=== PATIENT | male | born 2000 | race Caucasian/White ===

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

== ENCOUNTER → 2024-11-13 | Outpatient (CLI) | payer OTHER ==
--- NOTE | 2024-11-13 13:24 | XR ---
EXAMINATION TYPE: XR lumbar spine 3V DATE OF EXAM: 11/13/2024 1:14 PM COMPARISON: 06/08/2016 CLINICAL INDICATION: Male, 24 years old with history of S39.012A muscle strain, pain, FINDINGS: There is straightening of the normal lumbar lordosis. Vertebral body heights and disc spaces are pres erved. Additional leftward truncal shift. Alignment is maintained. IMPRESSION: Straightening of the normal lumbar lordosis and leftward truncal shift may reflect muscle spasm. Othe rwise, no radiographic abnormality seen. [facility], Workstation: [facility], 11/13/2024 1:21 PM
== END | disposition home or self-care (01) ==
LOC: RADXRMAIN 12:55
PROVIDERS: ATTEND Emergency Medicine
DX: S39.012A Strain of muscle, fascia and tendon of lower back, initial encounter (principal); X58.XXXA Exposure to other specified factors, initial encounter
CPT/HCPCS: 72100